=== PATIENT | male | born 1980 | race Caucasian/White ===

== ENCOUNTER 2016-05-11 04:56 | Emergency (ER) | payer SELFPAY | END 2016-05-11 06:00 | disposition home or self-care (01) | LOC: ER 04:56 | DX: S01.01XA Laceration without foreign body of scalp, initial encounter (principal); Z23 Encounter for immunization; W01.198A Fall on same level from slipping, tripping and stumbling with subsequent striking against other object, initial encounter | CPT/HCPCS: 90471 ==